=== PATIENT | female | born 1990 | race Caucasian/White ===

== ENCOUNTER 2020-12-01 19:03 | Emergency (ER) | payer MEDICAID, SELFPAY ==
[2020-12-01 19:20] VITALS: BP 130/77; PULSE 78; RESP 19; TEMP 36.6; O2SAT 100; BMI 25.4
--- NOTE | 2020-12-01 19:39 | HMH.EDUTC ---
[facility] [place] Clinical Impression: Exposure to COVID-19 virus Disposition: Home, Self-Care Condition on Discharge: Good Instructions: DI for COVID-19 (Suspected or Confirmed ), Coronavirus Disease 2019, Preventing the Spread of Coronavirus Discharge Instructions Additional Instructions: *Monitor Temp, Over the counter Motrin or Tylenol as directed/as needed Tylenol every 4 hours and Motrin every 6 hours (as long as your family doctor has told you that you can take it) for fever or pain. and straight to ER if unable to lower temp less than 101.0 after medication given Follow up IMMEDIATELY for new or worsening symptoms or no Noticeable improvement over the next 48-72 hours. 911 for difficulty breathing or swallowing You were tested for today for COVID19 your test result should be back in the next 24-48 hours, you may call to the [facility] to see if your test results are back in the next 48 hours [phone] [facility] hours are 9am-9pm You was given a handout with instructions for Self Quarantine and Self isolation for while you wait on test results and what to do if they are positive If you are positive the Health Dept will be contacting you also Referrals: Provider,Referral, MD [Primary Care Provider] - As needed Forms: Work/School Release Time of Disposition: 19:40 Medical Decision Making - Harman Inquiry Pt receiving controlled substance: No Harman was queried for this patient: No Vital Signs: 12/01/20 19:20 Temperature 97.8 F Temperature Source Oral Pulse Rate [Right Brachial] 78 Respiratory Rate 19 Blood Pressure [Right Arm] 130/77 Blood Pressure Mean [Right Arm] 94 Blood Pressure Source [Right Arm] Automatic Cuff Blood Pressure Position [Right Arm] Sitting 02 Sat by Pulse Oximetry 100 Oxygen Delivery Method Room Air Orders (Tests/Meds): ORDERS Category Date Time Status Covid-19 Nasal PCR Sendout P&C Stat Lab 12/01/20 19:15 Received [facility] [place] HPI - General Stated complaint: COVID Testing Time Seen by Provider: 12/01/20 19:39 Mode of Arrival: Ambulatory Source of Information: Patient Limitations: No Limitations Description of Symptoms (Recalled from Triage Doc. by RN): COVID TEST D/T EXPOSURE HEENT Symptoms (Recalled from RN notes): No Resp Symptoms (Recalled from RN notes): No Skin Symptoms (Recalled from RN notes): No MS Symptoms (Recalled from RN notes): No Functional Status (Recalled from RN notes): WNL - History of Present Illness Provider Complaint: Patient states that she was recently around someone that was positive for COVID states that she came in to get tested States that she has felt tired and had a little nausea but not other symptoms - Related Data Previous Rx's Medication Instructions Recorded amoxicillin 500 mg capsule 500 mg PO Q12H 10 Days #20 cap 01/21/20 Allergies Allergy/AdvReac Type Severity Reaction Status Date / Time No Known Allergies Allergy Verified 12/01/20 19:36 - Worker's Comp Is this a Worker's Comp case?: No [facility] History - Hepatitis A Screen Drug use history?: No High risk sexual behaviors?: No History of sexually transmitted infection?: No Currently employed?: No Childcare worker?: No Do you have indoor plumbing?: Yes Do you have electricity?: Yes Attestation statement:: This patient has been screened for Hepatitis A risk factors. I have reviewed the patient's past medical history: Yes Medical History: Denies:: Cancer, Diabetes Mellitus Type 1, Diabetes Mellitus Type 2, MRSA Other Surgeries: Yes: Amputation: No - Social History Smoking Status: Current every day smoker Tobacco Type: cigarettes # Packs/Day (cigarettes): 1 Alcohol Intake: never Occupational Status: other Housing: apartment Household Members: children Family Hx:: No significant family history ROS Obtained: Yes All systems reviewed & no additional complaints, Yes Systems reviewed as appropriate & no additional complaints - Constitutional Constitution
[2020-12-01 19:58] VITALS: BP 130/77; PULSE 78; RESP 19; TEMP 36.6; O2SAT 100
[2020-12-03 11:36] LABS: Covid-19 Nasal PCR Sendout P&C Negative
== END 2020-12-01 20:00 | disposition home or self-care (01) ==
PROVIDERS: Emergency Provider Nurse Practitioner
DX: Z20.822 Contact with and (suspected) exposure to COVID-19 (principal)
CPT/HCPCS: 99202; G0463; U0004

== ENCOUNTER 2021-01-18 16:20 | Emergency (ER) | payer MEDICAID, SELFPAY ==
[2021-01-18] VITALS (7 sets, daily range): BP systolic 101–134; BP diastolic 56–77; PULSE 75–99; RESP 16–18; TEMP 36.7; O2SAT 97–100; BMI 23.8
--- NOTE | 2021-01-18 16:36 | US_ITS ---
PROCEDURE: US BREAST RT LIMITED CLINICAL INDICATION: erythema/fluctuance noted just medial to areola Bowl and a red palpable area medial to the areola with pain COMPARISON: No exams were available for comparison FINDINGS: There is a complex hypoechoic mass in the medial aspect of the right breast corresponding to the palpable abnormality. This measures 4 x 2 cm. There are irregular low level echoes. There is enhanced through transmission of sound. These findings are consistent with a breast abscess. IMPRESSION: Findings compatible with abscess of the right breast as described above. Suggest convalescent follow-up to confirm resolution Dictated by: Manpreet Shin MD 01/24/2021 10:39 Manpreet Shin MD in [place] 01/24/2021 10:39
--- NOTE | 2021-01-18 16:36 | HMH.EDGENADL ---
ED Disposition Clinical Impression: Breast abscess Disposition: Home, Self-Care Condition on Discharge: Good Additional Instructions: Take antibiotic as prescribed. Please gently clean around dressing site and allow wick to stay in place. Do not directly soak dressing site overnight. Follow-up with general surgery tomorrow. You should receive a phone call but if you do not hear from them by noon tomorrow please call to make an appointment. Return immediately to the ER if unable to secure follow-up with general surgery, fever/chills, worsening pain, other symptoms. Prescriptions: Clindamycin HCl 150 mg PO TID 7 Days #63 cap Transmission Status: Pending to [id number] Referrals: PCP,No [Primary Care Provider] - - Critical Care Critical Care Time: No Attestation: On , the high probability of a clinically significant, sudden or life threatening deterioration of the following system(s) required my full and direct attention, intervention and personal management. The time I documented below is in addition to time spent performing reported procedures but includes the following listed in this critical care notation. Medical Decision Making - Medical Records Medical records reviewed: Yes: I reviewed the patient's medical records. - Harman Inquiry Pt receiving controlled substance: Yes Harman was queried for this patient: No Reason not queried -: Emergent pt cond-no time Risks and benefits of using a controlled substance: were discussed with pt by me Vital Signs: 01/18/21 16:21 01/18/21 16:51 01/18/21 17:21 Temperature 98.0 F Temperature Source Oral Pulse Rate [Right Radial] 88 90 81 Respiratory Rate 18 17 18 Blood Pressure [Right Arm] 101/71 L 133/71 112/71 Blood Pressure Mean [Right Arm] 81 91 84 Blood Pressure Source [Right Arm] Automatic Cuff Blood Pressure Position [Right Arm] Sitting 02 Sat by Pulse Oximetry 99 97 99 Oxygen Delivery Method Room Air 01/18/21 17:30 01/18/21 18:00 01/18/21 18:30 Temperature Temperature Source Pulse Rate [Right Radial] 92 H 99 H 81 Respiratory Rate 18 18 18 Blood Pressure [Right Arm] 112/71 123/71 134/71 Blood Pressure Mean [Right Arm] 84 88 92 Blood Pressure Source [Right Arm] Blood Pressure Position [Right Arm] 02 Sat by Pulse Oximetry 97 98 97 Oxygen Delivery Method - Lab Data Lab Results 01/18/21 16:51: WBC 10.0, RBC 5.11, Hgb 15.1, Hct 46.0, MCV 90.1, MCH 29.6, MCHC 32.8, RDW 14.6, Plt Count 312, MPV 7.7, Neut % (Auto) 68.7, Lymph % (Auto) 20.9, Todd % (Auto) 6.8, Eos % (Auto) 2.9, Baso % (Auto) 0.6, Neut # (Auto) 6.9, Lymph # (Auto) 2.1, Todd # (Auto) 0.7, Eos # (Auto) 0.3, Baso # (Auto) 0.1 01/18/21 16:51: Sodium 141, Potassium 4.1, Chloride 107, Carbon Dioxide 27, Anion Gap 11.1, BUN 7, Creatinine 0.60, Estimated Creat Clear 129, Estimated GFR 118, Est GFR ( Amer) 143, Glucose 87, Calcium 9.2, Total Bilirubin 0.5, AST 23, ALT 10 L, Alkaline Phosphatase 69, Total Protein 7.5, Albumin 4.3, Globulin 3.2, Albumin/Globulin Ratio 1.3 Result diagrams: 01/18/21 16:51 01/18/21 16:51 Orders (Tests/Meds): ED MEDICATIONS Discontinued Medications Generic Name Dose Route Start Last Admin Trade Name Honey PRN Reason Stop Dose Admin Hydrocodone Bitart/Acetaminophen 1 tab 01/18/21 16:37 01/18/21 16:47 Hydrocodone/Apap 5/325 Mg Tablet PO 01/18/21 16:38 1 tab ONCE ONE Administration ORDERS Category Date Time Status US breast RT limited Stat Exams 01/18/21 16:36 Taken Medical Decision Narrative: Patient 30-year-old female presenting with right breast complaint. Patient presents with an area of erythema/fluctuance just medial to her right areola. The area has increased in size and is increasingly sensitive over the past 2 or 3 days. Patient is systemically well with no systemic signs of illness. I suspect the patient may be suffering from breast abscess versus inflammatory breast disease. Ultrasou
--- NOTE | 2021-01-18 16:51 | PC.NURSE ---
pt to ultrasound
[2021-01-18 17:04] LABS: Basophils # 0.1 K/mm3 (0-0.2); Basophils % 0.6 % (0.1-2.0); Eosinophils # 0.3 K/mm3 (0.0-0.4); Eosinophils % 2.9 % (0.1-12.0); Hemoglobin 15.1 g/dL (12.2-16.2); Lymphocytes # 2.1 K/mm3 (0.7-4.5); Lymphocytes % 20.9 % (10-50); Mean Corpuscular HGB Conc 32.8 g/dL (31.8-35.4); Mean Corpuscular Hemoglobin 29.6 pg (27.0-31.2); Mean Corpuscular Volume 90.1 fl (81-99); Mean Platelet Volume 7.7 fl (7.4-10.4); Monocytes # 0.7 K/mm3 (0.1-1.0); Monocytes % 6.8 % (1.7-9.3); Neutrophils # 6.9 K/mm3 (1.8-7.8); Neutrophils % 68.7 % (37.0-80.0); Platelet Count 312 K/mm3 (142-424); Red Blood Count 5.11 M/mm3 (4.20-5.40); Red Cell Distribution Width 14.6 % (11.5-17.5)
--- NOTE | 2021-01-18 17:06 | PC.NURSE ---
Dr Vásquez spoke with Dr Nye
[2021-01-18 17:08] LABS: Chloride 107 mmol/L (98-107); Potassium 4.1 mmoL/L (3.5-5.1); Sodium 141 mmol/L (136-145)
[2021-01-18 17:11] LABS: Alanine Aminotransferase 10 U/L (12-78); Albumin Level 4.3 g/dl (3.5-5.0); Albumin/Globulin Ratio 1.3 (1.1-1.8); Alkaline Phosphatase 69 U/L (38-126); Anion Gap 11.1 mEq/L (5-15); Aspartate Amino Transferase 23 U/L (14-36); Bilirubin,Total 0.5 mg/dl (0.2-1.3); Blood Urea Nitrogen 7 mg/dl (7-17); Carbon Dioxide 27 mmol/L (22.0-30.0); Creatinine Clearance Estimated 129 mL/min (50-200); Estimated Glomerular Filt Rate 118 ml/min (>60); GFR (African American) 143 ML/MIN (>60); Globulin 3.2 g/dL (1.3-3.2); Total Protein,Serum 7.5 g/dl (6.3-8.2)
[2021-01-18 17:12] LABS: Calcium 9.2 mg/dl (8.4-10.2); Glucose 87 mg/dl (74-100)
== END 2021-01-18 19:07 | disposition home or self-care (01) ==
PROVIDERS: Emergency Provider Emergency Medicine
DX: N61.1 Abscess of the breast and nipple (principal); F17.210 Nicotine dependence, cigarettes, uncomplicated
CPT/HCPCS: 10060; 76642; 80053; 85025; 99284

== ENCOUNTER 2021-01-20 15:34 | Emergency (ER) | payer MEDICAID, SELFPAY ==
[2021-01-20 15:36] VITALS: BP 120/70; PULSE 85; RESP 18; TEMP 36.6; O2SAT 99; BMI 23.8
--- NOTE | 2021-01-20 16:05 | HMH.EDGENADL ---
ED Disposition Clinical Impression: Encounter for wound re-check Disposition: Home, Self-Care Condition on Discharge: Good Referrals: PCP,No [Primary Care Provider] - Luis Nye MD [Staff Physician] - - Critical Care Critical Care Time: No Attestation: On 01/20/21, the high probability of a clinically significant, sudden or life threatening deterioration of the following system(s) required my full and direct attention, intervention and personal management. The time I documented below is in addition to time spent performing reported procedures but includes the following listed in this critical care notation. Medical Decision Making - Medical Records Medical records reviewed: Yes: I reviewed the patient's medical records. - Harman Inquiry Pt receiving controlled substance: No Vital Signs: 01/20/21 15:36 Temperature 97.8 F Temperature Source Oral Pulse Rate [Left Radial] 85 Respiratory Rate 18 Blood Pressure [Left Arm] 120/70 Blood Pressure Mean [Left Arm] 86 Blood Pressure Source [Left Arm] Automatic Cuff Blood Pressure Position [Left Arm] Sitting 02 Sat by Pulse Oximetry 99 Oxygen Delivery Method Room Air Medical Decision Narrative: 30-year-old female presented to the emergency department for wound reevaluation. The patient's abscess appears to be improving significantly since previous visit. I did remove the packing there was some minimal drainage. There is no evidence of worsening infection. Patient will maintain her follow-up with general surgery. She is to continue taking all of her antibiotics. She was given strict return precautions. Verbalized understanding. General Adult HPI - General Chief complaint: Recheck/Abnormal Lab/Rx Stated complaint: f/u for jyotsna on abcess on right breast Time Seen by Provider: 01/20/21 16:05 Mode of Arrival: Ambulatory Limitations: No Limitations Description of Symptoms (Recalled from ER Triage Doc. by RN): pt here for wound check and packing change r/t I&D on R breast 2 days ago. Pt is to f/u with general surgery, appt on 01/25/21. Pt reports pain has decreased, states site is still draining some, denies fevers - History of Present Illness HPI narrative: 30-year-old female presented to the emergency department for wound reevaluation. The patient had an abscess drained on her right breast 3 days ago. Patient has follow-up scheduled for general surgery next week. Patient states that she has had some mild drainage from the wound. She brings this with antibiotics. She denies any fevers or chills. She states her pain is significantly improved. She has not had any other complications. - Related Data Previous Rx's Medication Instructions Recorded amoxicillin 500 mg capsule 500 mg PO Q12H 10 Days #20 cap 01/21/20 Clindamycin HCl 150 mg PO TID 7 Days #63 cap 01/18/21 Allergies Allergy/AdvReac Type Severity Reaction Status Date / Time No Known Allergies Allergy Verified 12/01/20 19:36 [facility] History - Hepatitis A Screen Drug use history?: No High risk sexual behaviors?: No History of sexually transmitted infection?: No Currently employed?: No Childcare worker?: No Do you have indoor plumbing?: Yes Do you have electricity?: Yes Attestation statement:: This patient has been screened for Hepatitis A risk factors. I have reviewed the patient's past medical history: Yes Medical History: Denies:: Cancer, Diabetes Mellitus Type 1, Diabetes Mellitus Type 2, MRSA Other Surgeries: Yes: Amputation: No - Social History Smoking Status: Current every day smoker Tobacco Type: cigarettes # Packs/Day (cigarettes): 1 Alcohol Intake: never Occupational Status: other Housing: apartment Household Members: children Family Hx:: No significant family history ROS Obtained: Yes All systems reviewed & no additional complaints - Constitutional Constitutional: Denies chills, Denies fever(s) - Cardiovascular Cardiovascular: Denies
[2021-01-20 16:12] VITALS: BP 120/70; PULSE 85; RESP 18; TEMP 36.6; O2SAT 99
== END 2021-01-20 16:12 | disposition home or self-care (01) ==
PROVIDERS: Emergency Provider Emergency Medicine
DX: N61.1 Abscess of the breast and nipple (principal)
CPT/HCPCS: 99281

== ENCOUNTER 2021-02-17 13:01 | Emergency (ER) | payer MEDICAID, SELFPAY ==
[2021-02-17 13:07] VITALS: BP 121/71; PULSE 100; RESP 18; O2SAT 98; BMI 28.3
[2021-02-17 13:11] VITALS: BP 112/75; PULSE 92; RESP 16; TEMP 36.8; O2SAT 98; BMI 28.3
--- NOTE | 2021-02-17 13:21 | HMH.EDUTC ---
[place] Disposition Clinical Impression: Cellulitis of right breast Disposition: Home, Self-Care Condition on Discharge: Good Instructions: Cellulitis Additional Instructions: Apply warm wet compresses to the affected sites three or four times per day for 15 minutes as tolerated. Take the antibiotics as directed. Follow up with surgery for a recheck. You may need this to be drained. Follow up with your regular doctor. GO TO THE ER FOR ANY WORSENING SYMPTOMS OR CONCERNS Prescriptions: Sulfamethoxazole/Trimethoprim [Bactrim DS tablet] 1 each PO BID 10 Days #20 tab Transmission Status: Received by [facility] Mupirocin [Bactroban 2% Ointment 22gm tube] 1 applicatio TP TID 7 Days #1 tube Transmission Status: Received by [facility] cephALEXin [cephALEXin 500mg capsule] 500 mg PO Q6H 10 Days #40 cap Transmission Status: Received by [facility] Referrals: PCP,No [Primary Care Provider] - Time of Disposition: 14:37 Medical Decision Making - Medical Records Medical records reviewed: No: I reviewed the patient's medical records. - Harman Inquiry Pt receiving controlled substance: No Vital Signs: 02/17/21 13:07 02/17/21 13:11 02/17/21 14:42 Temperature 98.3 F 98 F Temperature Source Oral Pulse Rate 99 H Pulse Rate [Left Radial] 100 H 92 H Respiratory Rate 18 16 14 Blood Pressure 129/84 Blood Pressure [Right Arm] 121/71 112/75 Blood Pressure Mean [Right Arm] 87 87 Blood Pressure Source [Right Arm] Automatic Cuff Automatic Cuff Blood Pressure Position [Right Arm] Sitting Sitting 02 Sat by Pulse Oximetry 98 98 Oxygen Delivery Method Room Air Room Air Orders (Tests/Meds): ED MEDICATIONS Discontinued Medications Generic Name Dose Route Start Last Admin Trade Name Freq PRN Reason Stop Dose Admin Ceftriaxone Sodium 1 gm 02/17/21 14:27 02/17/21 14:29 Ceftriaxone 1gm Vial IM 02/17/21 14:28 1 gm ONCE ONE Administration Protocol Lidocaine HCl 0 ml 02/17/21 14:27 02/17/21 14:30 Lidocaine 1% 5ml Pf Vial IM 02/17/21 14:28 2 ml ONCE ONE Administration [place] HPI - General Stated complaint: cyst on Rt breast Time Seen by Provider: 02/17/21 13:24 Mode of Arrival: Ambulatory Source of Information: Patient Limitations: No Limitations Description of Symptoms (Recalled from Triage Doc. by RN): pt has an abcess on her right breast. she had it drained here but did not follow up with Dr. Nye. it is now back. HEENT Symptoms (Recalled from RN notes): No Resp Symptoms (Recalled from RN notes): No Skin Symptoms (Recalled from RN notes): Yes (abcess on R breast) MS Symptoms (Recalled from RN notes): No Functional Status (Recalled from RN notes): na - History of Present Illness Provider Complaint: She states that she has had a red area on her right breast for the past 3 days or so. She had a similar episode about a month ago. She came to this [facility] and had the lesion drained. She did not follow up with surgery after her initial visit. - Related Data Previous Rx's Medication Instructions Recorded amoxicillin 500 mg capsule 500 mg PO Q12H 10 Days #20 cap 01/21/20 Clindamycin HCl 150 mg PO TID 7 Days #63 cap 01/18/21 Mupirocin [Bactroban 2% Ointment 1 applicatio TP TID 7 Days #1 tube 02/17/21 22gm tube] Sulfamethoxazole/Trimethoprim 1 each PO BID 10 Days #20 tab 02/17/21 [Bactrim DS tablet] cephALEXin [cephALEXin 500mg 500 mg PO Q6H 10 Days #40 cap 02/17/21 capsule] Allergies Allergy/AdvReac Type Severity Reaction Status Date / Time No Known Allergies Allergy Verified 02/17/21 13:16 - Worker's Comp Is this a Worker's Comp case?: No [facility] History - Hepatitis A Screen Drug use history?: No High risk sexual behaviors?: No History of sexually transmitted infection?: No Currently employed?: No Childcare worker?: No Do you have indoor plumbing?: Yes Do you have electricity?: Yes Attestation statement:
[2021-02-17 14:42] VITALS: BP 129/84; PULSE 99; RESP 14; TEMP 36.6
== END 2021-02-17 14:42 | disposition home or self-care (01) ==
PROVIDERS: Emergency Provider Nurse Practitioner Family
DX: N61.1 Abscess of the breast and nipple (principal)
CPT/HCPCS: 96372; 99202; G0463

== ENCOUNTER 2022-03-05 18:06 | Emergency (ER) | payer MEDICAID, SELFPAY ==
[2022-03-05 18:44] VITALS: BP 129/69; PULSE 83; RESP 16; TEMP 37; O2SAT 95; BMI 25.4
--- NOTE | 2022-03-05 18:49 | HMH.EDUTC ---
[facility] [place] Disposition Clinical Impression: Otitis media Qualifiers: Otitis media type: suppurative Chronicity: acute Laterality: bilateral Recurrence: non-recurrent Spontaneous tympanic membrane rupture: without spontaneous rupture Qualified Code(s): H66.003 - Acute suppurative otitis media without spontaneous rupture of ear drum, bilateral Disposition: Home, Self-Care Condition on Discharge: Good Instructions: Middle Ear Infection Additional Instructions: Drink plenty of fluids. Take tylenol or ibuprofen for pain or fever. Take the medications as directed. Follow up with your regular doctor. GO TO THE ER FOR ANY WORSENING SYMPTOMS Prescriptions: Ondansetron [Zofran 4mg ODT] 4 mg PO Q8HP PRN #12 tab PRN Reason: Nausea Transmission Status: Received by [facility] Amoxicillin [Amoxicillin 875MG Tab] 875 mg PO Q12H #20 tab Transmission [facility]: [facility] methylPREDNISolone [Medrol] 4 mg PO DIRECTED 6 Days #21 packet Transmission Status: [facility] Referrals: Jessy Virgen APRN [Primary Care Provider] - Forms: Work/School Release Time of Disposition: 19:13 Medical Decision Making - Medical Records Medical records reviewed: No: I reviewed the patient's medical records. - Harman Inquiry Pt receiving controlled substance: No Vital Signs: 03/05/22 18:44 03/05/22 19:16 Temperature 98.6 F 98.6 F Temperature Source Oral Pulse Rate 83 Pulse Rate [Left] 83 Respiratory Rate 16 16 Blood Pressure 129/69 Blood Pressure [Right Arm] 129/69 Blood Pressure Mean [Right Arm] 89 02 Sat by Pulse Oximetry 95 - Lab Data Lab Results 03/05/22 18:36: Group A Strep Rapid Negative Orders (Tests/Meds): ORDERS Category Date Time Status Strep Screen Confirmation Stat Micro 03/05/22 18:36 Received [facility] [place] HPI - General Stated complaint: ear and throat pain Time Seen by Provider: 03/05/22 18:49 Mode of Arrival: Ambulatory Source of Information: Patient Limitations: No Limitations Description of Symptoms (Recalled from Triage Doc. by RN): pt c/o L ear ache and a sore throat since yesterday. HEENT Symptoms (Recalled from RN notes): Yes Resp Symptoms (Recalled from RN notes): No Skin Symptoms (Recalled from RN notes): No MS Symptoms (Recalled from RN notes): No Functional Status (Recalled from RN notes): wnl - History of Present Illness Provider Complaint: She c/o left ear pain that has been worsening for the past 3 days. She states that she gets a lot of ear infections. She denies any fever or chills. - Related Data Previous Rx's Medication Instructions Recorded amoxicillin 500 mg capsule 500 mg PO Q12H 10 Days #20 cap 01/21/20 Clindamycin HCl 150 mg PO TID 7 Days #63 cap 01/18/21 Mupirocin [Bactroban 2% Ointment 1 applicatio TP TID 7 Days #1 tube 02/17/21 22gm tube] Sulfamethoxazole/Trimethoprim 1 each PO BID 10 Days #20 tab 02/17/21 [Bactrim DS tablet] cephALEXin [cephALEXin 500mg 500 mg PO Q6H 10 Days #40 cap 02/17/21 capsule] Amoxicillin [Amoxicillin 875MG 875 mg PO Q12H #20 tab 03/05/22 Tab] Ondansetron [Zofran 4mg ODT] 4 mg PO Q8HP PRN #12 tab 03/05/22 methylPREDNISolone [Medrol] 4 mg PO DIRECTED 6 Days #21 03/05/22 packet Allergies Allergy/AdvReac Type Severity Reaction Status Date / Time No Known Allergies Allergy Verified 02/17/21 13:16 - Worker's Comp Is this a Worker's Comp case?: No [facility] History - Hepatitis A Screen Drug use history?: No High risk sexual behaviors?: No History of sexually transmitted infection?: No Currently employed?: No Childcare worker?: No Do you have indoor plumbing?: Yes Do you have electricity?: Yes Attestation statement:: This patient has been screened for Hepatitis A risk factors. I have reviewed the patient's past medical history: Yes Medical History: Denies:: Cancer, Diabetes Mellitus Type 1, Diabetes Mellitus Type 2, MRSA
[2022-03-05 19:09] LABS: Strep Scrn Group A (Rapid) Negative (Negative)
[2022-03-05 19:16] VITALS: BP 129/69; PULSE 83; RESP 16; TEMP 37
== END 2022-03-05 19:17 | disposition home or self-care (01) ==
PROVIDERS: Emergency Provider Nurse Practitioner Family; PCP Nurse Practitioner Family
DX: H66.003 Acute suppurative otitis media without spontaneous rupture of ear drum, bilateral (principal); J02.9 Acute pharyngitis, unspecified; F17.210 Nicotine dependence, cigarettes, uncomplicated; Z79.52 Long term (current) use of systemic steroids
CPT/HCPCS: 87430; 99213; G0463